=== PATIENT | male | born 1950 | race Two or more races ===

== ENCOUNTER 2018-06-07 23:16 | Inpatient (IN) | payer OTHER ==
[~2018-06-07] VITALS: Ht 172.7 cm; Wt 68.0 kg
[2018-06-07 23:30] VITALS: BP 157/100
--- NOTE | 2018-06-07 23:30 | NUR ---
ER Nurse Note: Pt BIBA from daughter's home c/o n/v since 2129. Per daughter, he was eating dinner with family, then felt nausea, dizzy and vomited. Pt is visitng from [facility] but first time vomiting. At bedside; pt threw up 600 cc of bile. Pt a&ox4, VSS. ERMD at pt side; will continue to monitor.
--- NOTE | 2018-06-07 23:40 | Emergency Room Report ---
History of Present Illness General Chief Complaint: Nausea, Vomiting, and Diarrhea Source: Patient Present Illness HPI Patient presents with complaints of acute symptoms nausea vomiting dizziness patient reports that as he was finishing dinner he started feeling very nauseated Denies any chest pain denies any headache denies any visual changes He does feel the room spinning at times denies any lower abdominal pain or diarrhea denies any rash Allergies: Coded Allergies: No Known Allergies (Unverified , 06/07/18) Patient History Past Medical History: see triage record Pertinent Family History: none Reviewed Nursing Documentation: PMH: Agreed; PSxH: Agreed Nursing Documentation-PMH Past Medical History: No History, Except For Review of Systems All Other Systems: negative except mentioned in HPI Physical Exam Vital Signs Date Time Temp Pulse Resp B/P (MAP) Pulse Ox O2 Delivery O2 Flow Rate FiO2 06/07/18 23:09 98.4 86 16 157/100 98 Room Air Sp02 EP Interpretation: reviewed, normal General Appearance: mild distress - Appears dizzy Head: normocephalic, atraumatic Eyes: bilateral eye PERRL, bilateral eye EOMI ENT: hearing grossly normal, normal pharynx Neck: supple Respiratory: lungs clear, no retraction, no accessory muscle use Cardiovascular #1: regular rate, rhythm Gastrointestinal: non tender, soft Musculoskeletal: normal inspection Neurologic: normal inspection, alert, oriented x3, responsive Skin: normal color, no rash Lymphatic: no adenopathy Medical Decision Making Diagnostic Impression: Primary Impression: Nausea, vomiting, and diarrhea Additional Impression: Vomiting ER Course With the history exam and presentation, multiple differentials considered, including but not limited to appendicitis, gastritis, cholecystitis, diverticulitis Patient continues not to have much significant epigastric discomfort abdomen remains soft however patient feels nauseated Blood work also appropriate however given the patient's severity of symptoms is admitted for further inpatient care Labs Test 06/07/18 23:30 White Blood Count 7.9 K/UL (4.8-10.8) Red Blood Count 4.53 M/UL (4.70-6.10) Hemoglobin 15.3 G/DL (14.2-18.0) Hematocrit 43.4 % (42.0-52.0) Mean Corpuscular Volume 96 FL (80-99) Mean Corpuscular Hemoglobin 33.7 PG (27.0-31.0) Mean Corpuscular Hemoglobin Concent 35.2 G/DL (32.0-36.0) Red Cell Distribution Width 10.9 % (11.6-14.8) Platelet Count 208 K/UL (150-450) Mean Platelet Volume 7.6 FL (6.5-10.1) Neutrophils (%) (Auto) 50.2 % (45.0-75.0) Lymphocytes (%) (Auto) 29.9 % (20.0-45.0) Monocytes (%) (Auto) 8.1 % (1.0-10.0) Eosinophils (%) (Auto) 10.7 % (0.0-3.0) Basophils (%) (Auto) 1.2 % (0.0-2.0) Sodium Level 141 MMOL/L (136-145) Potassium Level 4.6 MMOL/L (3.5-5.1) Chloride Level 104 MMOL/L (98-107) Carbon Dioxide Level 29 MMOL/L (21-32) Anion Gap 8 mmol/L (5-15) Blood Urea Nitrogen 9 mg/dL (7-18) Creatinine 1.1 MG/DL (0.55-1.30) Estimat Glomerular Filtration Rate > 60 mL/min (>60) Glucose Level 124 MG/DL (74-106) Calcium Level 9.3 MG/DL (8.5-10.1) Total Bilirubin 0.6 MG/DL (0.2-1.0) Aspartate Amino Transf (AST/SGOT) 31 U/L (15-37) Alanine Aminotransferase (ALT/SGPT) 40 U/L (12-78) Alkaline Phosphatase 71 U/L (46-116) Total Creatine Kinase 271 U/L (26-308) Creatine Kinase MB 4.5 NG/ML (0.0-3.6) Creatine Kinase MB Relative Index 1.6 Troponin I 0.001 ng/mL (0.000-0.056) Total Protein 7.4 G/DL (6.4-8.2) Albumin 4.2 G/DL (3.4-5.0) Globulin 3.2 g/dL Albumin/Globulin Ratio 1.3 (1.0-2.7) Lipase 156 U/L (73-393) Rhythm Strip Diag. Results EP Interpretation: yes Rate: 77 Rhythm: NSR, no PVC's, no ectopy Chest X-Ray Diagnostic Results Chest X-Ray Diagnostic Results : Chest X-Ray Ordered: Yes # of Views/Limited/Complete: 1 View Indication: Chest Pain EP Interpretation: Yes Interpretation: no consolidation, no effusion, no pneumothorax Impression: No acute disease Electronically Signed by: Elisabeth Hopkins DO Last Vital Signs Date Time Temp Pulse Resp B/P (MAP) Pulse Ox O2 Delivery O2 Flow Rate FiO2 06/07/18 23:09 98.4 86 16 157/100 98 Room Air Status: improved Disposition: ADMITTED INPATIENT Condition: Serious Scripts No Active Prescriptions or Reported Meds Elisabeth Hopkins DO Jun 07, 2018 23:40
[2018-06-07] MEDS ORDERED: DiphenhydrAMINE 50mg/ml Inj IVP ONE (23:45)
[2018-06-07 23:55] LABS: BASOPHILS % (AUTO) 1.2 % (0.0-2.0); EOSINOPHILS % (AUTO) 10.7 % (0.0-3.0); HEMATOCRIT 43.4 % (42.0-52.0); HEMOGLOBIN 15.3 G/DL (14.2-18.0); LYMPHOCYTES % (AUTO) 29.9 % (20.0-45.0); MEAN CORPUSCULAR VOLUME 96 FL (80-99); MONOCYTES % (AUTO) 8.1 % (1.0-10.0); NEUTROPHILS % (AUTO) 50.2 % (45.0-75.0); PLATELET COUNT 208 K/UL (150-450); RED BLOOD COUNT 4.53 M/UL (4.70-6.10); RED CELL DISTRIBUTION WIDTH 10.9 % (11.6-14.8); WHITE BLOOD COUNT 7.9 K/UL (4.8-10.8)
[2018-06-08 00:05] LABS: ANION GAP 8 mmol/L (5-15); BLOOD UREA NITROGEN 9 mg/dL (7-18); CALCIUM 9.3 MG/DL (8.5-10.1); CARBON DIOXIDE 29 MMOL/L (21-32); CHLORIDE 104 MMOL/L (98-107); CREATININE 1.1 MG/DL (0.55-1.30); POTASSIUM 4.6 MMOL/L (3.5-5.1); SODIUM 141 MMOL/L (136-145)
[2018-06-08 00:20] LABS: ALANINE AMINOTRANSFERASE 40 U/L (12-78); ALBUMIN 4.2 G/DL (3.4-5.0); ALBUMIN/GLOBULIN RATIO 1.3 (1.0-2.7); ALKALINE PHOSPHATASE 71 U/L (46-116); ASPARTATE AMINO TRANSFERASE 31 U/L (15-37); BILIRUBIN,TOTAL 0.6 MG/DL (0.2-1.0); CKMB 4.5 NG/ML (0.0-3.6); CREATINE KINASE 271 U/L (26-308)
[2018-06-08 01:31] VITALS: BP 122/77
--- NOTE | 2018-06-08 01:32 | NUR ---
ER Nurse Note: Pt a&ox4, VSS, no signs of distress. No n/v since medications given, no dizziness, no shortness of breath. Pt calm, cooperative. All orders completed per ERMD orders. Pt being admitted for dehydration; awaiting bed. All safety measures met;w ill continue to montior.
--- NOTE | 2018-06-08 02:00 | NUR ---
ER Nurse Note: Report given to LINDEN Keyes in [place] for continuity of care. Pt a&ox4, VSS, no signs of distress. No episodes of n/v. Pt left with all belongings.
--- NOTE | 2018-06-08 02:45 | NUR ---
NURSE NOTES: RECEIVED PT FROM ER VIA JUDI. A/O X 4, RA, NO SOB, NO ACUTE DISTRESS. ADM DX OF VOMITING AND DEHYDRATION UNDER DR LEACH. ORIENTED PT TO SURROUNDINGS. CHECKED BELONGINGS. RAC IV INTACT AND PATENT. BED IN LOWEST POSITION, LOCKED ALARMS ON. CALL LIGHT IN REACH. DTR BY BEDSIDE. DENIES PAIN OR N/V AT THIS MOMENT. WILL RECEIVE ADM ORDER FROM DR LEACH.
[2018-06-08] MEDS ORDERED: DiphenhydrAMINE 50mg/ml Inj IVP PRN (03:30)
[2018-06-08] MEDS ORDERED: Ketorolac 30mg Inj IV PRN ×2 (03:30→06:15)
[2018-06-08] MEDS: D5NS 1,000 ML IV SCH ×3 (03:53→23:43)
[2018-06-08 04:00] VITALS: BP 104/67
--- NOTE | 2018-06-08 06:32 | NUR ---
Patient noted with bradycardia. Manually measured HR 50 at 0400 and current HR is 48/min. Asymptomatic, other vitals stable, denies pain or dizziness. Per pt, his baseline HR is in late 50's. IVF running at 100cc/hr. Denies N/V. Left msg to Dr Richter.
--- NOTE | 2018-06-08 06:43 | NUR ---
NURSE NOTES: RECEIVED STAT EKG, TROPONIN, AND ECHO ORDERS FROM DR LEACH. CARRIED OUT. PER DR LEACH, SALES ACCOUNT LEADER IS DR FRANKLIN.
[2018-06-08 07:09] LABS: BASOPHILS % (AUTO) 0.9 % (0.0-2.0); EOSINOPHILS % (AUTO) 6.1 % (0.0-3.0); HEMATOCRIT 39.8 % (42.0-52.0); HEMOGLOBIN 13.7 G/DL (14.2-18.0); LYMPHOCYTES % (AUTO) 22.4 % (20.0-45.0); MEAN CORPUSCULAR VOLUME 97 FL (80-99); MONOCYTES % (AUTO) 7.2 % (1.0-10.0); NEUTROPHILS % (AUTO) 63.3 % (45.0-75.0); PLATELET COUNT 174 K/UL (150-450); RED BLOOD COUNT 4.11 M/UL (4.70-6.10); RED CELL DISTRIBUTION WIDTH 11.5 % (11.6-14.8); WHITE BLOOD COUNT 7.7 K/UL (4.8-10.8)
[2018-06-08 07:19] LABS: ANION GAP 6 mmol/L (5-15); BLOOD UREA NITROGEN 8 mg/dL (7-18); CALCIUM 8.4 MG/DL (8.5-10.1); CARBON DIOXIDE 28 MMOL/L (21-32); CHLORIDE 110 MMOL/L (98-107); CREATININE 1.1 MG/DL (0.55-1.30); POTASSIUM 4.3 MMOL/L (3.5-5.1); SODIUM 144 MMOL/L (136-145)
--- NOTE | 2018-06-08 07:36 | NUR ---
NURSE NOTES:WALKING ROUNDS DONE WITH NIGHT RN(TORI).PATIENT A/OX4,ROOM AIR,NO C/O PAIN.IV SITE RAC PATENT,AMBULATORY AD FAYE.GAIT STEADY,NPO.PLAN OF CARE DISCUSSED AND VERBALIZED UNDERSTANDING.DAUGHTER AT BEDSIDE.
--- NOTE | 2018-06-08 07:36 | NUR ---
HAND-OFF: Report given to Isabella CHEATHAM.
--- NOTE | 2018-06-08 07:59 | History & Physical ---
History and Physical History & Physicial seen and examined. Full Dictation completed on 800 Padilla Richter MD Jun 08, 2018 07:59
[2018-06-08 08:00] VITALS: BP 114/74
[2018-06-08] MEDS: Pantoprazole Inj IVP SCH (08:11)
[2018-06-08] MEDS: Heparin 5000 units/ml inj SUBQ SCH ×2 (08:13→19:57)
--- NOTE | 2018-06-08 09:15 | NUR ---
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 DEHYDRATION VS: BP 157/100, P 86, T 98.4, RR 16, SpO2 98 RBC 4.53, Hgb 13.7, Hct 39.8 IS:NS IV x1L ZOFRAN 4mg IVP BENADRYL 25mg IVP ADMITTED TO MED/SURG DC PLAN: RETURN HOME
--- NOTE | 2018-06-08 11:56 | NUR ---
NURSE NOTES:DR. FRANKLIN NOTIFIED RE:EKG RESULT.NO ORDERS.
[2018-06-08 12:00] VITALS: BP 120/78
--- NOTE | 2018-06-08 12:07 | GI Initial Consult Note ---
History of Present Illness General Date patient seen: Jun 08, 2018 Time patient seen: 12:01 Reason for Hospitalization: Nausea, Vomiting, and Diarrhea Referring physician: HANY Reason for Consultation: Nausea and vomiting Present Illness HPI Patient presents with complaints of acute symptoms nausea vomiting dizziness patient reports that as he was finishing dinner he started feeling very nauseated Denies any chest pain denies any headache denies any visual changes He does feel the room spinning at times denies any lower abdominal pain or diarrhea denies any rash GI consulted for reported nausea vomiting. Patient seen, awake alert and oriented x4. Currently has no complaints of nausea vomiting or diarrhea. Patient stated that he has a history of a CVA, is currently on a low-dose blood thinner. The patient denies any recent travels, denies any changes in dietary habits, denies any hematocrit emesis or coffee grounds. Patient stated he had an upper endoscopy and colonoscopy approximately 4 months ago in which they found GERD and internal hemorrhoids. The patient is not taking any medication for his GERD. On the initial visit to the ER, it was noted that the patient blood pressure was 157/100; it is now within normal limits. The patient requests to have his diet advanced and wishes to be discharged. Home Meds No Active Prescriptions or Reported Meds Med list reviewed/reconciled: Yes Allergies: Coded Allergies: No Known Allergies (Unverified , 06/07/18) Patient History History Provided By: Patient, Medical Record PMH Narrative Past Medical History: see triage record Pertinent Family History: none Reviewed Nursing Documentation: PMH: Agreed; PSxH: Agreed Nursing Documentation-PM Past Medical History: No History, Except For Past Surgical History: none Pertinent Family History: none Social History: Denies: smoking, alcohol use, drug use, other Review of Systems All Other Systems: negative except mentioned in HPI Physical Exam Vital Signs Date Time Temp Pulse Resp B/P (MAP) Pulse Ox O2 Delivery O2 Flow Rate FiO2 06/07/18 23:09 98.4 86 16 157/100 98 Room Air Sp02 EP Interpretation: reviewed, normal Labs Laboratory Tests Test 06/07/18 23:30 06/08/18 06:50 White Blood Count 7.9 K/UL (4.8-10.8) 7.7 K/UL (4.8-10.8) Red Blood Count 4.53 M/UL (4.70-6.10) L 4.11 M/UL (4.70-6.10) L Hemoglobin 15.3 G/DL (14.2-18.0) 13.7 G/DL (14.2-18.0) L Hematocrit 43.4 % (42.0-52.0) 39.8 % (42.0-52.0) L Mean Corpuscular Volume 96 FL (80-99) 97 FL (80-99) Mean Corpuscular Hemoglobin 33.7 PG (27.0-31.0) H 33.5 PG (27.0-31.0) H Mean Corpuscular Hemoglobin Concent 35.2 G/DL (32.0-36.0) 34.5 G/DL (32.0-36.0) Red Cell Distribution Width 10.9 % (11.6-14.8) L 11.5 % (11.6-14.8) L Platelet Count 208 K/UL (150-450) 174 K/UL (150-450) Mean Platelet Volume 7.6 FL (6.5-10.1) 7.5 FL (6.5-10.1) Neutrophils (%) (Auto) 50.2 % (45.0-75.0) 63.3 % (45.0-75.0) Lymphocytes (%) (Auto) 29.9 % (20.0-45.0) 22.4 % (20.0-45.0) Monocytes (%) (Auto) 8.1 % (1.0-10.0) 7.2 % (1.0-10.0) Eosinophils (%) (Auto) 10.7 % (0.0-3.0) H 6.1 % (0.0-3.0) H Basophils (%) (Auto) 1.2 % (0.0-2.0) 0.9 % (0.0-2.0) Sodium Level 141 MMOL/L (136-145) 144 MMOL/L (136-145) Potassium Level 4.6 MMOL/L (3.5-5.1) 4.3 MMOL/L (3.5-5.1) Chloride Level 104 MMOL/L (98-107) 110 MMOL/L (98-107) H Carbon Dioxide Level 29 MMOL/L (21-32) 28 MMOL/L (21-32) Anion Gap 8 mmol/L (5-15) 6 mmol/L (5-15) Blood Urea Nitrogen 9 mg/dL (7-18) 8 mg/dL (7-18) Creatinine 1.1 MG/DL (0.55-1.30) 1.1 MG/DL (0.55-1.30) Estimat Glomerular Filtration Rate > 60 mL/min (>60) > 60 mL/min (>60) Glucose Level 124 MG/DL (74-106) H 104 MG/DL (74-106) Calcium Level 9.3 MG/DL (8.5-10.1) 8.4 MG/DL (8.5-10.1) L Total Bilirubin 0.6 MG/DL (0.2-1.0) Aspartate Amino Transf (AST/SGOT) 31 U/L (15-37) Alanine Aminotransferase (ALT/SGPT) 40 U/L (12-78) Alkaline Phosphatase 71 U/L (46-116) Total Creatine Kinase 271 U/L (26-308) Creatine Kinase MB 4.5 NG/ML (0.0-3.6) H Creatine Kinase MB Relative Index 1.6 Troponin I 0.001 ng/mL (0.000-0.056) 0.006 ng/mL (0.000-0.056) Total Protein 7.4 G/DL (6.4-8.2) Albumin 4.2 G/DL (3.4-5.0) Globulin 3.2 g/dL Albumin/Globulin Ratio 1.3 (1.0-2.7) Lipase 156 U/L (73-393) General Appearance: well appearing, no apparent distress, alert Head: normocephalic EENT: PERRL/EOMI, normal ENT inspection Neck: supple Respiratory: normal breath sounds, no respiratory distress Cardiovascular: normal rate Gastrointestinal: normal inspection, non tender, soft, normal bowel sounds, non -distended Rectal: deferred Genitourinary: deferred Musculoskeletal: normal inspection, back normal Neurologic: normal inspection, alert, oriented x3, responsive Psychiatric: normal inspection, judgement/insight normal, memory normal Skin: normal inspection, normal color, no rash, warm/dry, palpation normal, well hydrated Lymphatic: normal inspection, no adenopathy Current Medications Current Medications Medications (Trade) Dose Ordered Sig/Aidan Route PRN Reason Start Time Stop Time Status Last Admin Dose Admin Dextrose/Sodium Chloride 1,000 ml @ 100 mls/hr Q10H IV 06/08/18 03:30 07/08/18 03:29 06/08/18 03:53 Diphenhydramine HCl (Benadryl) 25 mg Q6H PRN IVP Itching 06/08/18 03:30 07/08/18 03:29 Heparin Sodium (Porcine) (Heparin 5000 units/ml) 5,000 units EVERY 12 HOURS SUBQ 06/08/18 09:00 07/08/18 08:59 06/08/18 08:13 Ketorolac Tromethamine (Toradol 30mg) 15 mg BID PRN IV Severe Pain 06/08/18 06:15 06/13/18 03:29 Ondansetron HCl (Zofran) 4 mg Q4H PRN IVP Nausea & Vomiting 06/08/18 03:30 07/08/18 03:29 Pantoprazole (Protonix) 40 mg DAILY IVP 06/08/18 09:00 07/08/18 08:59 06/08/18 08:11 GI: Plan Problems: (1) Nausea, vomiting, and diarrhea (2) Vomiting Plan Recent history of endoscopic and colonoscopy noted with GERD and internal hemorrhoids History of CVA nausea and vomiting secondary to ?hypertensive episode Okay to advance to regular diet, okay for DC per GI standpoint if patient able to tolerate Symptomatic treatment Zofran as needed, Reglan for persistent vomiting IV and p.o. hydration PPI Will consider stool studies if patient has persistent diarrhea Discussed with Dr. Isbell. Thank you for this patient referral, we will follow. The patient was seen and examined at bedside and all new and available data was reviewed in the patients chart. I agree with the above findings, impression and plan. (Patient seen earlier today. Signature stamp does not reflect patient encounter time.). - MD Francine King,[facility] [place]-Nikhil WELDING MACHINE OPERATOR THERMIT Jun 08, 2018 12:07
--- NOTE | 2018-06-08 13:50 | Diagnostic Imaging Report ---
Indication: Chest pain Technique: One view of the chest Comparison: none Findings: Lungs and pleural spaces are clear. Heart size is normal Impression: No acute process
[2018-06-08] MEDS ORDERED: Isovue-300 100ml vial INJ PRN (14:45)
--- NOTE | 2018-06-08 16:00 | History and Physical Report ---
DATE OF ADMISSION: 06/08/2018 SOURCE OF INFORMATION: Patient and EMR. HISTORY OF PRESENT ILLNESS: The patient is a 68-year-old male who presented with dizziness and fatigue that appeared to be an acute onset. Initial evaluation shows the stable vital signs in the ER. The blood work shows abnormal blood sugar. Imaging is pending at this time. The patient's [id number] at the bedside. The patient denies any chest pain or shortness of breath. No loss of consciousness. No diarrhea. PAST MEDICAL HISTORY: Unremarkable. PAST SURGICAL HISTORY: Including cataract surgery. SOCIAL HISTORY: The patient denies history of illicit drug abuse, smoking, or alcohol abuse. 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 MEDICATIONS: Current hospital medications including, but not limited to, heparin subcu, Protonix. PHYSICAL EXAMINATION: VITAL SIGNS: Blood pressure 160/80, temperature 98.2, pulse ox 98% on room air. HEAD AND NECK: Atraumatic, normocephalic. CHEST: Clear to auscultation. HEART: S1, S2. Regular rate and rhythm. ABDOMEN: Soft. No organomegaly. MUSCULOSKELETAL: No gross focal motor deficit. NEUROLOGY: The patient is awake, alert, oriented x3. LABORATORY DATA: WBC 7.9, hemoglobin 15.3, platelets of 200. Sodium 140, potassium 4.6, BUN 9, creatinine 1.1. AST and ALT are within normal limits. ASSESSMENT: 1. Acute encephalopathy. 2. Bradyarrhythmia. 3. GI and DVT prophylaxes. PLAN OF CARE: We will consult Cardiology. We will send troponin stat. We will check the echo. Padilla Richter M.D. DR: PUMA JOB#: [id number] CC:
--- NOTE | 2018-06-08 16:25 | NUR ---
HAND-OFF: Report given to WAN RN RE:CONTINUITY OF CARE.PATIENT STABLE.
[2018-06-08 16:30] VITALS: BP 107/69
--- NOTE | 2018-06-08 16:50 | NUR ---
nurse notes received patient resting comfortably in bed, no sign of distress, HL patent , IVF not hooked per patient they are just waiting for Dr Ferreira ready to go home, family at bedside,denies pain or discomfort nica bhardwaj
--- NOTE | 2018-06-08 19:18 | Cardiology Report ---
APPROVED REPORT EXAM: Two-dimensional and M-mode echocardiogram with Doppler and color Doppler. INDICATION Bradycardia M-Mode DIMENSIONS IVSd1.2 (0.7-1.1cm)Left Atrium (MM)2.7 (1.6-4.0cm) LVDd3.5 (3.5-5.6cm)Aortic Root3.8 (2.0-3.7cm) PWd1.1 (0.7-1.1cm)Aortic Cusp Exc.2.0 (1.5-2.0cm) LVDs2.3 (2.5-4.0cm) PWs1.5 cm Normal left ventricular chamber size, systolic function and wall motion. Left ventricular ejection fraction estimated to be 55-60 %. Borderline left ventricular hypertrophy. Anterior Echo-free space, may be due to pericardial fat or effusion. All other cardiac chamber sizes are within normal limits. Focal aortic valve sclerosis with adequate cusp excursion. Thickened mitral valve leaflets with normal excursion. Mitral annulus and aortic root calcification. Pulmonic valve not well visualized. Normal tricuspid valve structure. IVC at normal size with physiologic collapse. A color flow and spectral Doppler study was performed and revealed: Mild mitral regurgitation. Mitral diastolic velocities suggest reduced left ventricular relaxation c/w mild LV diastolic dysfunction (Grade I). Mild tricuspid regurgitation. Tricuspid systolic velocities suggests peak right ventricular systolic pressure of 36 mmHg, consistent with mild pulmonary hypertension. Moderate pulmonic regurgitation present.
--- NOTE | 2018-06-08 19:21 | NUR ---
HAND-OFF: Report given to LINDEN Mason accordingly linden bhardwaj.
--- NOTE | 2018-06-08 19:35 | NUR ---
NURSE NOTES: Received patient awake,verbal,resting in bed,no vomiting noted,comfortable,relative at bedside.
--- NOTE | 2018-06-08 19:38 | Cardiology Report ---
APPROVED REPORT EKG Measurement Heart [id number] OR [id number] elevation, probably due to early repolarization Borderline ECG
--- NOTE | 2018-06-08 19:39 | Cardiology Report ---
APPROVED REPORT EKG Measurement Heart [id number] Sinus bradycardia Otherwise normal ECG
[2018-06-08 20:00] VITALS: BP 102/58
--- NOTE | 2018-06-08 20:51 | Cardiology Progress Note ---
Assessment/Plan Assessment/Plan [id number] Objective Last 24 Hour Vital Signs Date Time Temp Pulse Resp B/P (MAP) Pulse Ox O2 Delivery O2 Flow Rate FiO2 06/08/18 16:49 Room Air 06/08/18 16:30 98.0 48 17 107/69 (82) 98 06/08/18 12:00 97.6 48 19 120/78 (92) 98 06/08/18 08:00 98.8 54 18 114/74 (87) 97 06/08/18 07:46 Room Air 06/08/18 04:00 97.3 50 18 104/67 (79) 100 06/08/18 03:53 Room Air 06/08/18 02:00 98.3 80 15 122/77 98 Room Air 06/08/18 01:31 98.3 80 15 122/77 98 Room Air 06/07/18 23:30 98.4 86 16 157/100 98 Room Air 06/07/18 23:09 98.4 86 16 157/100 98 Room Air Intake and Output 06/07/18 06/08/18 18:59 06:59 Intake Total 2000 ml Output Total 400 ml Balance 1600 ml Intake Oral 0 ml IV Total 2000 ml Output Urine Total 400 ml # Voids 1 Laboratory Tests Test 06/07/18 23:30 06/08/18 06:50 White Blood Count 7.9 K/UL (4.8-10.8) 7.7 K/UL (4.8-10.8) Red Blood Count 4.53 M/UL (4.70-6.10) L 4.11 M/UL (4.70-6.10) L Hemoglobin 15.3 G/DL (14.2-18.0) 13.7 G/DL (14.2-18.0) L Hematocrit 43.4 % (42.0-52.0) 39.8 % (42.0-52.0) L Mean Corpuscular Volume 96 FL (80-99) 97 FL (80-99) Mean Corpuscular Hemoglobin 33.7 PG (27.0-31.0) H 33.5 PG (27.0-31.0) H Mean Corpuscular Hemoglobin Concent 35.2 G/DL (32.0-36.0) 34.5 G/DL (32.0-36.0) Red Cell Distribution Width 10.9 % (11.6-14.8) L 11.5 % (11.6-14.8) L Platelet Count 208 K/UL (150-450) 174 K/UL (150-450) Mean Platelet Volume 7.6 FL (6.5-10.1) 7.5 FL (6.5-10.1) Neutrophils (%) (Auto) 50.2 % (45.0-75.0) 63.3 % (45.0-75.0) Lymphocytes (%) (Auto) 29.9 % (20.0-45.0) 22.4 % (20.0-45.0) Monocytes (%) (Auto) 8.1 % (1.0-10.0) 7.2 % (1.0-10.0) Eosinophils (%) (Auto) 10.7 % (0.0-3.0) H 6.1 % (0.0-3.0) H Basophils (%) (Auto) 1.2 % (0.0-2.0) 0.9 % (0.0-2.0) Sodium Level 141 MMOL/L (136-145) 144 MMOL/L (136-145) Potassium Level 4.6 MMOL/L (3.5-5.1) 4.3 MMOL/L (3.5-5.1) Chloride Level 104 MMOL/L (98-107) 110 MMOL/L (98-107) H Carbon Dioxide Level 29 MMOL/L (21-32) 28 MMOL/L (21-32) Anion Gap 8 mmol/L (5-15) 6 mmol/L (5-15) Blood Urea Nitrogen 9 mg/dL (7-18) 8 mg/dL (7-18) Creatinine 1.1 MG/DL (0.55-1.30) 1.1 MG/DL (0.55-1.30) Estimat Glomerular Filtration Rate > 60 mL/min (>60) > 60 mL/min (>60) Glucose Level 124 MG/DL (74-106) H 104 MG/DL (74-106) Calcium Level 9.3 MG/DL (8.5-10.1) 8.4 MG/DL (8.5-10.1) L Total Bilirubin 0.6 MG/DL (0.2-1.0) Aspartate Amino Transf (AST/SGOT) 31 U/L (15-37) Alanine Aminotransferase (ALT/SGPT) 40 U/L (12-78) Alkaline Phosphatase 71 U/L (46-116) Total Creatine Kinase 271 U/L (26-308) Creatine Kinase MB 4.5 NG/ML (0.0-3.6) H Creatine Kinase MB Relative Index 1.6 Troponin I 0.001 ng/mL (0.000-0.056) 0.006 ng/mL (0.000-0.056) Total Protein 7.4 G/DL (6.4-8.2) Albumin 4.2 G/DL (3.4-5.0) Globulin 3.2 g/dL Albumin/Globulin Ratio 1.3 (1.0-2.7) Lipase 156 U/L (73-393) Kris Ferreira MD Jun 08, 2018 20:51
--- NOTE | 2018-06-09 00:45 | Consultation ---
DATE OF CONSULTATION: 06/08/2018 CARDIOLOGY CONSULTATION CONSULTING PHYSICIAN: Kris Ferreira M.D. REFERRING PHYSICIAN: Padilla Richter M.D. REASON FOR REFERRAL: Bradycardia. HISTORY OF PRESENT ILLNESS: This is a 68-year-old [place] gentleman, who is visiting from [place]. Apparently, he had some food last night, felt nauseated and vomited a couple times and paramedics were summoned and told the patient everything was fine, but that they would like for him to get checked. He was brought to the emergency room here at [facility], subsequently admitted. He really does not have any chest pain or pressure. There is no PND or orthopnea. No heart pounding or palpitation. He likes to sleep with one thin pillow at home. He does not usually have any chest pain or shortness of breath. He tells me that he has been previously told that his heart rate has been quite slow in the 58 to 60 range usually and that the bradycardia that has been documented has not been unusual for him, although is much lower than usual. Nevertheless, he was brought to the emergency room here at [facility]. He denies any prior medical problems, although he does have a history of TIA a couple of years ago. He has been seen by a neurologist in [facility]. ALLERGIES: He is not allergic to any medications. SOCIAL HISTORY: He does not smoke or drink alcoholic beverages. REVIEW OF SYSTEMS: GASTROINTESTINAL: Nausea and vomiting as mentioned. No diarrhea. No bloody or black stool. GENITOURINARY: Negative. PULMONARY: Negative. PHYSICAL EXAMINATION: GENERAL: Shows to be an elderly gentleman, who is lying down. NECK: Supple. No jugular venous distention. No abdominojugular reflux. LUNGS: Clear to auscultation and percussion. CARDIAC: Regular rhythm. Heart rate of 62. No heaves or thrills noted. ABDOMEN: Soft, nontender. Positive bowel sounds. EXTREMITIES: There is no clubbing, cyanosis, nor is there any edema. NEUROLOGIC: Awake, alert, responsive. LABORATORY VALUES: The EKG shows sinus rhythm with normal QRS axis, sinus bradycardia, rate of 46 at the time of his admission. His blood tests show white count of 7.7, hemoglobin 13.7, and platelet count of 174. His sodium is 144, potassium 4.3, chloride 110, bicarbonate 28, BUN of 8, creatinine 1.1, and glucose of 104. Troponins are negative and his lipase was normal. He did have a chest x-ray performed that showed no acute processes. He did have an echocardiogram that was performed that showed ejection fraction of 55% to 60%. No significant valvular problems, diastolic dysfunction of grade 1, and PA pressure of 36 was documented. The EKG shows sinus bradycardia as mentioned. ASSESSMENT AND PLAN: 1. Sinus bradycardia with the history of the same. 2. Recurrent nausea and vomiting, possibly gastroenteritis, other etiologies to be excluded. This patient was seen in cardiac consultation. The patient does admit to having had some dizziness associated with nausea and bouts of vomiting. His electrolytes appear to be well. He does have bradycardia documented. The EKG of heart rate in the 45 to 46 range, but that in case of nausea and vomiting may be more exaggerated than his usual bradycardia that maybe vaguely induced. The patient should have a repeat EKG in the morning. He should have thyroid stimulating hormone checked as well and should avoid any negative chronotropic medications if possible. Orthostatic vitals will also be checked. Kris Ferreira M.D. DR: LUCIUS JOB#: [id number] CC:
[2018-06-09 04:11] VITALS: BP 113/73
--- NOTE | 2018-06-09 07:22 | NUR ---
NURSE NOTES: received report from LINDEN Mason. patient in bed. alert. verbally responsive. no respiratory distress noted. no c/o pain. no vomiting at this time. NPO for CT abd/pelvis. IV RAC fluid running. call light within reach. bed in the lowest position. will continue to monitor.
--- NOTE | 2018-06-09 07:23 | NUR ---
HAND-OFF: Report given to Kin Wong RN.
[2018-06-09 07:35] LABS: BASOPHILS % (AUTO) 1.2 % (0.0-2.0); EOSINOPHILS % (AUTO) 10.4 % (0.0-3.0); HEMATOCRIT 40.4 % (42.0-52.0); HEMOGLOBIN 13.9 G/DL (14.2-18.0); LYMPHOCYTES % (AUTO) 27.7 % (20.0-45.0); MEAN CORPUSCULAR VOLUME 97 FL (80-99); MONOCYTES % (AUTO) 9.3 % (1.0-10.0); NEUTROPHILS % (AUTO) 51.4 % (45.0-75.0); PLATELET COUNT 178 K/UL (150-450); RED BLOOD COUNT 4.17 M/UL (4.70-6.10); RED CELL DISTRIBUTION WIDTH 11.2 % (11.6-14.8); WHITE BLOOD COUNT 6.5 K/UL (4.8-10.8)
[2018-06-09 08:00] VITALS: BP 118/71
[2018-06-09 08:04] LABS: ANION GAP 7 mmol/L (5-15); BLOOD UREA NITROGEN 7 mg/dL (7-18); CALCIUM 8.5 MG/DL (8.5-10.1); CARBON DIOXIDE 27 MMOL/L (21-32); CHLORIDE 110 MMOL/L (98-107); CREATININE 1.1 MG/DL (0.55-1.30); POTASSIUM 4.1 MMOL/L (3.5-5.1); SODIUM 143 MMOL/L (136-145)
--- NOTE | 2018-06-09 08:25 | NUR ---
NURSE NOTES: patient refused to sign consent for abd ct . he says he feels fine now. notified MEDIA RECONCILIATION SPECIALIST nguen and received order DC CT scan and resume diet. order noted and carried out. will continue to monitor.
[2018-06-09] MEDS: Pantoprazole Inj IVP SCH (09:07)
[2018-06-09] MEDS: Heparin 5000 units/ml inj SUBQ SCH (09:08)
[2018-06-09] MEDS: D5NS 1,000 ML IV SCH (09:08)
--- NOTE | 2018-06-09 09:51 | NUR ---
SOFTWARE DEVELOPERPROPERTY AND SUPPLY OFFICER SI:VOMITING . DEHYDRATION VS: BP 102/58,P 48, T 98.3, RR 16, SpO2 98 RBC 4.17, Hgb 13.9, Hct 40.4, Chloride 110 IS:D5/NS x1L IV PROTONIX 40mg IVP HEPARIN SUBQ MED/SURG STATUS
--- NOTE | 2018-06-09 10:32 | GI Progress Note ---
Assessment/Plan Problems: (1) Vomiting ICD Codes: R11.10 - Vomiting, unspecified SNOMED: 384753451 (2) Nausea, vomiting, and diarrhea ICD Codes: R11.2 - Nausea with vomiting, unspecified; R19.7 - Diarrhea, unspecified SNOMED: 5338391 Status: stable Status Narrative Discussed with Dr. Isbell Assessment/Plan Recent history of endoscopic and colonoscopy noted with GERD and internal hemorrhoids History of CVA nausea and vomiting secondary to ?hypertensive episode Refused CT scan Okay for DC per GI standpoint Regular diet, tolerating Symptomatic treatment Zofran as needed, Reglan for persistent vomiting IV and p.o. hydration PPI Will consider stool studies if patient has persistent diarrhea The patient was seen and examined at bedside and all new and available data was reviewed in the patients chart. I agree with the above findings, impression and plan. (Patient seen earlier today. Signature stamp does not reflect patient encounter time.). - Dipak Isbell MD Subjective Gastrointestinal/Abdominal: Reports: no symptoms Subjective Ready for discharge Objective Last 24 Hour Vital Signs Date Time Temp Pulse Resp B/P (MAP) Pulse Ox O2 Delivery O2 Flow Rate FiO2 06/09/18 08:00 97.7 54 19 118/71 (87) 98 06/09/18 04:11 97.6 57 16 113/73 (86) 98 06/08/18 21:00 Room Air 06/08/18 20:00 98.3 55 17 102/58 (73) 100 06/08/18 16:49 Room Air 06/08/18 16:30 98.0 48 17 107/69 (82) 98 06/08/18 12:00 97.6 48 19 120/78 (92) 98 Intake and Output 06/08/18 06/09/18 19:00 07:00 Intake Total 1200 ml 1380 ml Balance 1200 ml 1380 ml Intake Oral 200 ml 480 ml IV Total 1000 ml 900 ml # Voids 1 3 Laboratory Tests Test 06/09/18 06:38 White Blood Count 6.5 K/UL (4.8-10.8) Red Blood Count 4.17 M/UL (4.70-6.10) L Hemoglobin 13.9 G/DL (14.2-18.0) L Hematocrit 40.4 % (42.0-52.0) L Mean Corpuscular Volume 97 FL (80-99) Mean Corpuscular Hemoglobin 33.3 PG (27.0-31.0) H Mean Corpuscular Hemoglobin Concent 34.4 G/DL (32.0-36.0) Red Cell Distribution Width 11.2 % (11.6-14.8) L Platelet Count 178 K/UL (150-450) Mean Platelet Volume 7.5 FL (6.5-10.1) Neutrophils (%) (Auto) 51.4 % (45.0-75.0) Lymphocytes (%) (Auto) 27.7 % (20.0-45.0) Monocytes (%) (Auto) 9.3 % (1.0-10.0) Eosinophils (%) (Auto) 10.4 % (0.0-3.0) H Basophils (%) (Auto) 1.2 % (0.0-2.0) Sodium Level 143 MMOL/L (136-145) Potassium Level 4.1 MMOL/L (3.5-5.1) Chloride Level 110 MMOL/L (98-107) H Carbon Dioxide Level 27 MMOL/L (21-32) Anion Gap 7 mmol/L (5-15) Blood Urea Nitrogen 7 mg/dL (7-18) Creatinine 1.1 MG/DL (0.55-1.30) Estimat Glomerular Filtration Rate > 60 mL/min (>60) Glucose Level 82 MG/DL (74-106) Calcium Level 8.5 MG/DL (8.5-10.1) Magnesium Level 2.3 MG/DL (1.8-2.4) Thyroid Stimulating Hormone (TSH) 3.003 uiU/mL (0.358-3.740) Height (Feet): 5 Height (Inches): 8.00 Weight (Pounds): 150 General Appearance: WD/WN, no apparent distress, alert Cardiovascular: normal rate Respiratory/Chest: normal breath sounds, no respiratory distress Abdominal Exam: normal bowel sounds, non tender, soft Extremities: normal range of motion, non-tender Kamala Escamilla NP Jun 09, 2018 10:32
--- NOTE | 2018-06-09 10:45 | NUR ---
*-* NO INSURANCE INFORMATION IN THE BAR TO SEND CLINICALS *-*
--- NOTE | 2018-06-09 11:17 | Cardiology Progress Note ---
Assessment/Plan Assessment/Plan krishna asymptomatic (with hs of the same syrup mixer assistant per pt ) nausea / vomiting afebrile bp is fien tsh normal ekg noted sinus krishna asymptomatic at this time no need for treatment ok to dc form cv point of view Subjective Cardiovascular: Denies: chest pain, lightheadedness, palpitations, syncope Respiratory: Denies: shortness of breath Gastrointestinal/Abdominal: Denies: abdominal pain, diarrhea, nausea, vomiting Genitourinary: Denies: burning Objective Last 24 Hour Vital Signs Date Time Temp Pulse Resp B/P (MAP) Pulse Ox O2 Delivery O2 Flow Rate FiO2 06/09/18 08:00 97.7 54 19 118/71 (87) 98 06/09/18 04:11 97.6 57 16 113/73 (86) 98 06/08/18 21:00 Room Air 06/08/18 20:00 98.3 55 17 102/58 (73) 100 06/08/18 16:49 Room Air 06/08/18 16:30 98.0 48 17 107/69 (82) 98 06/08/18 12:00 97.6 48 19 120/78 (92) 98 General Appearance: alert Neck: supple Cardiovascular: normal rate Respiratory/Chest: lungs clear, normal breath sounds Abdomen: normal bowel sounds, non tender, soft Extremities: no swelling Intake and Output 06/08/18 06/09/18 19:00 07:00 Intake Total 1200 ml 1380 ml Balance 1200 ml 1380 ml Intake Oral 200 ml 480 ml IV Total 1000 ml 900 ml # Voids 1 3 Laboratory Tests Test 06/09/18 06:38 White Blood Count 6.5 K/UL (4.8-10.8) Red Blood Count 4.17 M/UL (4.70-6.10) L Hemoglobin 13.9 G/DL (14.2-18.0) L Hematocrit 40.4 % (42.0-52.0) L Mean Corpuscular Volume 97 FL (80-99) Mean Corpuscular Hemoglobin 33.3 PG (27.0-31.0) H Mean Corpuscular Hemoglobin Concent 34.4 G/DL (32.0-36.0) Red Cell Distribution Width 11.2 % (11.6-14.8) L Platelet Count 178 K/UL (150-450) Mean Platelet Volume 7.5 FL (6.5-10.1) Neutrophils (%) (Auto) 51.4 % (45.0-75.0) Lymphocytes (%) (Auto) 27.7 % (20.0-45.0) Monocytes (%) (Auto) 9.3 % (1.0-10.0) Eosinophils (%) (Auto) 10.4 % (0.0-3.0) H Basophils (%) (Auto) 1.2 % (0.0-2.0) Sodium Level 143 MMOL/L (136-145) Potassium Level 4.1 MMOL/L (3.5-5.1) Chloride Level 110 MMOL/L (98-107) H Carbon Dioxide Level 27 MMOL/L (21-32) Anion Gap 7 mmol/L (5-15) Blood Urea Nitrogen 7 mg/dL (7-18) Creatinine 1.1 MG/DL (0.55-1.30) Estimat Glomerular Filtration Rate > 60 mL/min (>60) Glucose Level 82 MG/DL (74-106) Calcium Level 8.5 MG/DL (8.5-10.1) Magnesium Level 2.3 MG/DL (1.8-2.4) Thyroid Stimulating Hormone (TSH) 3.003 uiU/mL (0.358-3.740) Kris Ferreira MD Jun 09, 2018 11:16
--- NOTE | 2018-06-09 12:02 | NUR ---
NURSE NOTES: patient discharge to home with fair condition. no nausea or vomitting. no c/o pain at this time. IV and ID removed. no bleeding on IV site. checked and counted belonging with patient. provide dc packets. obtained sign on the paper.
--- NOTE | 2018-06-09 12:24 | Cardiology Report ---
APPROVED REPORT EKG Measurement Heart [id number] Sinus bradycardia Cannot rule out Inferior infarct, age undetermined Abnormal ECG
--- NOTE | 2018-06-11 08:02 | Discharge Summary ---
Discharge Summary Discharge Summary _ DATE OF ADMISSION: 06/08/2018 DATE OF DISCHARGE: 11/2018 DISCHARGED BY: Dr Richter REASON FOR ADMISSION: 88 years old male with no significant past medical history, presented for evaluation due to acute episode of dizziness, nausea, and vomiting. Patient reported acute onset of symptoms after he was finished dinner. Patient reported feeling very nauseous. He denied chest pain and shortness of breath.. He denied headache. He denied any visual changes. He reported that the room was spinning at times, but denied any lower abdominal pain or diarrhea. No rashes. Upon evaluation vital signs reveal elevated blood pressure 157/100. Heart rate was in 50s. Laboratory workup revealed no leukocytosis, stable hemoglobin and hematocrit. Glucose 124. Troponin negative. EKG revealed sinus bradycardia with heart rate of 55. Chest x-ray revealed no acute cardiopulmonary process. Patient was admitted for further management CONSULTANTS: blender/braze applicator Dr. Ferreira GI specialist Dr. Isbell [facility] COURSE: IV hydration. Patient admitted started on IV hydration. Cardiology and GI consult were requested. Repeated troponin was negative. Echocardiogram revealed preserved ejection fraction 55-60% with borderline left ventricular hypertrophy. No evidence of wall motion abnormality. Right ventricular systolic pressure of 36 consistent with a mild pulmonary hypertension. Moderate pulmonic regurgitation was present. Patient remained bradycardic in 50s. Pulse oximetry was stable on room air. Blood pressure stabilized after initial episode, and patient remained normotensive. DVT prophylaxis provided. Repeated two EKG still showed sinus bradycardia. Per blender/braze applicator, patient had bradycardia,but was asymptomatic. According to patient , he had a history of bradycardia for a long time. TSH was within normal limits. Per blender/braze applicator, no need for treatment since patient was bradycardic. Exchange Administrator cleared for discharge from cardiac standpoint. GI specialist followed. Patient had recent endoscopy and colonoscopy, which revealed GERD and internal hemorrhoids. Patient refused CAT scan of the abdomen and pelvis. Patient started on diet . Symptomatic treatment with Zofran on as needed basis and Reglan for persistent vomiting was on board. Patient received IV and oral hydration. Patient started on PPI. Patient was able to tolerate diet. Source of nausea and vomiting was unclear, possibly due to initial episode of elevated blood pressure as per GI specialist. pressure since blood pressure on admission was 157/100. However patient had Patient recommended to follow-up with primary care provider for close monitoring of blood pressure. Patient was stable for discharge. Due to rapid and unexpected improvement in patient condition, patient was discharged in 1 day. FINAL DIAGNOSES Acute encephalopathy Bradyarrhythmia Nausea vomiting -resolved , possibly secondary to secondary to initial hypertensive episode DISCHARGE MEDICATIONS: None DISCHARGE INSTRUCTIONS: Patient was discharged home . Follow up with primary care provider in one week . I have been assigned to dictate discharge summary for this account. I was not involved in the patient's management. Rosaura Braun NP Jun 11, 2018 08:02
== END 2018-06-09 11:53 | disposition home or self-care (01) | DRG 72 ==
LOC: EDBD 23:16 → EMR 23:48 → 4E 06-08 01:38 → EDBEDREQ 06-08 02:05
DX: G93.40 Encephalopathy, unspecified (principal); R00.1 Bradycardia, unspecified; R11.2 Nausea with vomiting, unspecified; I10 Essential (primary) hypertension; R42 Dizziness and giddiness
CPT/HCPCS: 36415; 71045; 80048; 80053; 82550; 82553; 83690; 83735; 84443; 84484; 85025; 93005; 93306; 96361; 96374; 96375; 99285; J2405